=== PATIENT | male | born 1970 | race Caucasian/White ===

== ENCOUNTER 2020-02-11 15:02 | Inpatient (IN) | payer OTHER ==
[~2020-02-11] VITALS: Ht 162.6 cm; Wt 69.9 kg
[2020-02-11 15:06] VITALS: BP 126/87
[2020-02-11 15:26] LABS: ABSOLUTE NEUTROPHILS 4.8 thou/uL (1.4-8.2); BASOPHILS 2.1 % (0.0-2.0); EOSINOPHILS 0.4 % (0.0-3.0); HEMATOCRIT 33.1 % (42.0-52.0); MCH 37.5 pg (26.0-34.0); MCHC 33.2 g/dL (28.0-37.0); MCV 113.1 fL (80.0-100.0); MONOCYTES 6.3 % (1.0-8.0); POLYS 74.2 % (36.0-66.0); RBC 2.93 mil/uL (4.50-6.00); RDW 16.4 % (10.5-14.5); WBC 6.5 thou/uL (4.0-11.0)
[2020-02-11 15:35] LABS: ANION GAP 14 mmol/L (7-16); BUN 6 mg/dL (7-18); CALCIUM 8.1 mg/dL (8.5-10.1); CHLORIDE 103 mmol/L (98-107); CO2 22 mmol/L (21-32); CREATININE 0.7 mg/dL (0.7-1.3); GLUCOSE 99 mg/dL (74-106); POTASSIUM 4.1 mmol/L (3.5-5.1); SODIUM 139 mmol/L (136-145)
[2020-02-11 15:40] LABS: ALBUMIN 2.2 g/dL (3.4-5.0); SGOT 495 U/L (15-37); SGPT 90 U/L (16-63); TOTAL BILIRUBIN 7.2 mg/dL (0.2-1.0); TOTAL PROTEIN 6.3 g/dL (6.4-8.2)
[2020-02-11 15:41] LABS: SALICYLATE < 2.8 mg/dL (2.8-20.0)
[2020-02-11 15:43] LABS: INR 1.1; PROTIME 11.5 Seconds (9.3-11.4)
[2020-02-11 16:52] LABS: ANISOCYTOSIS 1+
[2020-02-11 16:54] LABS: MACROCYTES 2+; PLATELET COUNT 87 thou/uL (150-400)
--- NOTE | 2020-02-11 19:03 | NUR ---
SARAH BITA-SPOUSE [phone]
[2020-02-11 20:05] LABS: AMP/METHAMP Negative (Negative); BARBITURATES Negative (Negative); BENZODIAZEPINES Negative (Negative); COCAINE Negative (Negative); METHADONE Negative (Negative); OPIATES Negative (Negative); PCP Negative (Negative)
[2020-02-12] VITALS (47 sets, daily range): BP systolic 100–164; BP diastolic 62–105
[2020-02-12 06:02] LABS: ALBUMIN 1.9 g/dL (3.4-5.0); CALCIUM 7.4 mg/dL (8.5-10.1); CREATININE 0.7 mg/dL (0.7-1.3); MAGNESIUM 1.3 mg/dL (1.8-2.4); PHOSPHORUS 3.3 mg/dL (2.5-4.9); TOTAL BILIRUBIN 4.6 mg/dL (0.2-1.0); TOTAL PROTEIN 5.3 g/dL (6.4-8.2)
--- NOTE | 2020-02-12 06:16 | NUR ---
Pt tranported from ED with possessions on gurney to ICU room 238 @ 5253. Pt shaky and trembling from alcohol withdrawels. Admissions started with wound pic takened of left toe. CIWA of 16 on arrival. Leslie OLIVARES aware of pt condition and arrival to the unit. continue with plan of care
--- NOTE | 2020-02-12 07:15 | EKG ---
[address] [place] [address] ELECTROCARDIOGRAM REPORT Name: RICKIE TORRES Room #: 238-P ADM IN M.R.#: [id number] Admission: 02/11/20 Attend Phys: Treva Shaw MD Discharge: Date of : 70 Report #: [id number] [facility] ED Test Date: 2020-02-11 Test Time: 16:22:13 Pat Name: RICKIE TORRES Department: Room: 238 Gender: M Basket Assembler: aaron : 1970 Requested By: Magdy Argueta Order Number: [id number] MD: Nate Norman Measurements Intervals [place] Rate: 113 P: 40 FL: 138 QRS: 36 QRSD: 91 T: QT: 334 QTc: 458 Interpretive Statements Sinus tachycardia Borderline T abnormalities, diffuse leads Artifact in multiple lead(s) No previous ECG available for comparison Electronically Signed On 02-12-2020 7:15:42 LEAD ELECTRICAL CONTROLS ENGINEER by Nate Norman [email or web address] <ELECTRONICALLY SIGNED> By: Nate Norman MD, [facility] 02/12/20 0715 1622 1622 Nate Norman MD, FACC /EPI
[2020-02-12 11:29] LABS: % SATURATION 109 % (20-39); IRON 110 ug/dL (65-175); TIBC 101 ug/dL (250-450)
[2020-02-12 13:07] LABS: HEP B SURFACE Ab(ANTI-HBS Non Reactive (()); HEPATITIS B SURFACE AG Negative (Negative); HEPATITIS C VIRUS AB <0.1 (0.0-0.9)
[2020-02-12 13:07] LABS: HIV ANTIBODY Non Reactive (Non Reactive)
[2020-02-12 13:55] LABS: RDW 16.9 % (10.5-14.5)
[2020-02-12 13:57] LABS: HEMATOCRIT 27.5 % (42.0-52.0); MCH 38.1 pg (26.0-34.0); MCHC 32.6 g/dL (28.0-37.0); MCV 116.7 fL (80.0-100.0); RBC 2.36 mil/uL (4.50-6.00); WBC 3.7 thou/uL (4.0-11.0)
[2020-02-12 14:31] LABS: ABSOLUTE NEUTROPHILS 2.8 thou/uL (1.4-8.2)
[2020-02-12 14:32] LABS: PLATELET COUNT 47 thou/uL (150-400)
[2020-02-12 14:33] LABS: ANISOCYTOSIS 1+; MACROCYTES 1+
--- NOTE | 2020-02-12 16:21 | NUR ---
ASSESSMENT: CM WAS NOTIFIED BY BRONSON RN AROUND 1515 THAT PTS INSURANCE IS OUT O NETWORK WITH NO OUT OF NETWORK BENEFITS AND PT IS NEEDING TO TRANSFER TO AN IN-NETWORK HOSPITAL. [facility] AND [facility] ARE IN NETWORK. CM LEFT WITH RACQUEL AT [facility] TO RETURN CALL. BRONSON RN VERIFIED WITH REGISTRATION THAT POLICY IS OUT OT NETWORK. CM CONTACTED PTS SARAH ABOUT INSURANCE BEING OUT OF NETWORK AND [facility] OR [facility] IS IN NETWORK AND SHE REQUEST TO SEE IF [facility] CAN ACCEPT PT. CM CONTACTED [facility] TRANSFER TEAM AT [phone] AND LEFT , CM RECEIVED A CALL BACK STATING THAT THEY DO NOT HAVE ANY ICU BEDS OPEN. REQUEST THAT SHE DOES NOT WANT PATIENT TO GO TO [place]. SHE STATES SHE IS OK WITH CHECKING WITH [facility] IF [facility] OR [facility] CAN ACCEPT SHE IS AGREEABLE WITH PLAN. CM REACHED TO TO [facility] TRANSFER TEAM [phone] AND SPOKE WITH RACQUEL. REFERRAL WAS SENT TO [facility] TEAM FAX [phone] AND THEY WILL REVIEW AND CONTACT BEDSIDE RN IF THEY HAVE A BED AVAILABLE. [facility] PROVIDED CONTACT FOR BEDSIDE RN WELL ATTENDING. CHART COPY WAS ORDERED. [facility] FORM WILL HAVE TO BE COMPLETED BY BEDSIDE RN AND THEN FAXED TO [phone]. [facility] WILL HAVE TO BE CONTACTED AT [phone] TO ARRANGE TRANSPORTATION. CONTACT PTS IF HOSPITAL IS ABLE TO ACCEPT, SARAH [phone].
[2020-02-12 19:06] LABS: IgG 769 mg/dL (603-1613)
--- NOTE | 2020-02-12 23:01 | NUR ---
ASSUMED CARE FOR PT AT 1845. ASSESSMENT COMPLETED, CIWA SCORES 19. PRECEDEX DRIP INFUSING AT 0.04MCG/HR, AND 4MG ATIVAN GIVEN FOR AGITATION. HERNANDEZ IN PLACE, AND VSS. TRANSFERRED PT TO ROOM 351 AND REPORT GIVEN TO NURSE Verde
[2020-02-13] VITALS (17 sets, daily range): BP systolic 93–137; BP diastolic 35–96
--- NOTE | 2020-02-13 04:42 | NUR ---
CARE ASSUMED 2200, PT TRANSFERRED FROM POD 1. ORIENTED X 2. VITALS STABLE. PT ETOH WITHDRAWAL. DENIES NAUSEA, VOMITING OR CHEST DISCOMFORT. NO AGITATION , OR IMPULSSIVENESS NOTED, BUT CIWA SCORES 11, AND 16 . ATIVAN 4 MG X 1 GIVEN. PT OTHERWISE SLEPT THROUGH THE NIGHT WITHOUT AND CONCERNS. \ PT EXPRESSES DESIRE TO SEE HIS AND DISCHARGE HOME. NO OTHER CONCERNS AT THIS TIME. ASSESSMENTS DOCUMENTED. WILL CONTINUE TO MONITOR.
[2020-02-13 08:10] LABS: MAGNESIUM 1.6 mg/dL (1.8-2.4); POTASSIUM 4.8 mmol/L (3.5-5.1)
--- NOTE | 2020-02-13 12:50 | NUR ---
IV FLUIDS LEAKING, BATHED, BED CHANGED. PARTIAL ASSIST BY PT IN BATHING HIMSELF. ATIVAN 4 MG IV GIVEN FOR CIWA-18. MARK SANCHEZ, PRESENT. UPDATED ON PT STATUS. SHE INQUIRED REGARDING STATUS OF HOSPITAL TRANSFER RELATED TO INSURANCE. CONTACTED CASE MANAGEMENT, UPDATED ON HER CONCERN.
[2020-02-13 13:08] LABS: ANA INTERPRETATION Negative (Negative)
--- NOTE | 2020-02-13 13:30 | NUR ---
ON-GOING ASSESSMENT: CM REACHED OUT TO [facility] TRANSFER TEAM IN REGARDS TO GETTING PT TRANSFERRED DUE TO BEING OUT OF NETWORK WITH NO OUT OF NETWORK BENEFITS. RIVER SPOKE WITH [facility] TRANSFER TEAM AGAIN AT 1330 AND THEY STATED THAT [facility] IS FULL, [facility] IS FULL, [facility] IS AT [facility]ACITY BUT SHOWS STILL REVIEWING, AND SHE REPORTS THE ONLY [facility] FACILITY CURRENTLY WITH AN OPENING IS [facility] AND DO NOT FEEL THEY COULD MEET PTS NEEDS THERE. CM ALSO REACHED OUT TO [facility] TRANSFER TEAM [phone] WHO REPORTS THEY ARE AT CAPACITY TODAY BUT COULD TRY BACK TOMORROW. CM EXPLAINED PT IS STILL ON PRECEDEX BUT PLANS TO TAKE PT OFF AND IF THEY COULD ACCEPT THEM. TRANSFER TEAM AT [facility] STATING NOT TODAY THEY ARE AT [facility]ACITY AND STILL HAVE OTHERS WAITING BUT TO TRY TOMORROW. CM NOTIFIED PTS . CM WILL CONTINUE TO FOLLOW TO ASSIST NEEDED. [facility] TRANSFER TEAM HAS BEDSIDE RN UNIT NUMBER OT CALL IF BED BECOMES AVAILABILE. RIVER ALSO SPOKE WITH RACQUEL AT COUNTS INCLUDE 234 BEDS AT THE [facility] WHO REPORTS SHE IS GOING TO TAKE TO HER EXCELSIOR PICKER TO REVIEW CASE AND ATTEMPT TO GET IT APPROVED THROUGH 02/12-02/13 AND CM NOTIFIED HER CM IS TRYING TO FIND A BED BUT HAVING TROUBLE WITH AVAILABILITY AT THIS TIME.
[2020-02-13 14:08] LABS: CERULOPLASMIN 17.7 mg/dL (16.0-31.0)
--- NOTE | 2020-02-13 15:13 | NUR ---
amy joseph w/tracy from [facility] transfer team, currently still pending. tracy to contact amy w/update after she reaches out to hospitals.
--- NOTE | 2020-02-13 16:30 | NUR ---
PRESENT FOR SEVERAL HOURS PROVIDING SUPPORT. DAVID LYNCH. PT RESTING QUIETLY, ATIVAN NOT GIVEN AT THIS TIME PER CIWA SCALE.
[2020-02-14] VITALS (16 sets, daily range): BP systolic 107–167; BP diastolic 70–109
[2020-02-14 02:59] LABS: HEMATOCRIT 26.6 % (42.0-52.0); MCH 38.6 pg (26.0-34.0); MCHC 33.8 g/dL (28.0-37.0); MCV 114.2 fL (80.0-100.0); RBC 2.33 mil/uL (4.50-6.00); RDW 15.3 % (10.5-14.5); WBC 4.3 thou/uL (4.0-11.0)
[2020-02-14 03:09] LABS: ALBUMIN 1.7 g/dL (3.4-5.0); CALCIUM 8.1 mg/dL (8.5-10.1); CREATININE 0.7 mg/dL (0.7-1.3); POTASSIUM 3.8 mmol/L (3.5-5.1); TOTAL BILIRUBIN 5.2 mg/dL (0.2-1.0); TOTAL PROTEIN 5.2 g/dL (6.4-8.2)
--- NOTE | 2020-02-14 07:25 | NUR ---
ASSUMED PT CARE AT 1900. VSS. PT A&0 TO SELF, ON CIWA PRT, RANGE OF 9-15. MANAGED PER MAR. PT IS STABLE. MULTIPLE BM'S AND URINARY INCONTINENCE OVER NOC. OTHERWISE UNEVENTFUL NOC. PT STILL ON PRECEDEX. WILL COTNINUE TO MONITOR PER POC.
--- NOTE | 2020-02-14 09:44 | NUR ---
ASSUMED CARE OF PT AT 0700. PT IS HALLUCINATING VISUALLY. HIS CWA SCORE AT 0800 IT WAS 20 AND AT 0900 WAS 24. HE CONTINUES TO ASK FOR HIS . I SPOKE TO THE DISASTER RECOVERY COORDINATOR ADAN AT 0940 AND SHE ASKED TO CALL HER WHEN HE IS READY FOR TRANSFER. DR. WOODS WAS AT THE BEDSIDE AT 0940 AND SAID TO TURN THE PRECEDEX OFF AND TO US HALDOL IF NEEDED.
--- NOTE | 2020-02-14 10:44 | NUR ---
Pt's insurance is in network per UR nurse and pt will not need to transfer. All parties updated including pt's who is currently at bedside. Possible transfer out of the ICU today now that precedex has been dc'd. CIWA and ethol withdrawal protocal in place. GI following. 's cell number updated d/t typo [phone]. Will follow.
--- NOTE | 2020-02-14 20:49 | NUR ---
1950-SPOKE WITH ELISE SILVER, PT C/O NAUSEA, OBTAINED ORDER FOR ZOFRAN. PT ALSO NOTED TO HAVE RAISED RED SPLOTCHES ACROSS ABD, THIGHS, AND BACK; OBTAINED ORDER FOR BENADRYL CREAM.
[2020-02-15] VITALS (18 sets, daily range): BP systolic 110–178; BP diastolic 68–133
[2020-02-15 10:31] LABS: ALBUMIN 1.7 g/dL (3.4-5.0); DIRECT BILIRUBIN 3.7 mg/dL (<0.1-0.2); TOTAL BILIRUBIN 4.1 mg/dL (0.2-1.0); TOTAL PROTEIN 5.5 g/dL (6.4-8.2)
--- NOTE | 2020-02-15 16:42 | NUR ---
ASSUMED CARE PT APPROX 0900. PT SLEEPING, LIGHT SEDATION WITH PRECEDEX GTT AT 0.6, TITRATED DOWN CURRENTLY AT 0.3. PT REMAINS LETHARGIC. VSS. O2 SATS WNL ROOM AIR. PT EASILY AROUSABLE, SIPS WATER AND SMALL BITES FOOD GIVEN WITH NO S/SX ASPIRATION. SPOUSE AT BEDSIDE THROUGHOUT SHIFT. HERNANDEZ REMAINS IN PLACE FOR RETENTION AND STRICT I&O. CIWA SCORES 6-7 THIS SHIFT. WILL CONTINUE TO ATTEMPT TO WEAN TOLERATES. PT CURRENTLY SLEEPING IN NAP DISTRESS. WILL CONT TO MONITOR AND FOLLOW POC. WILL PASS ON REPORT TO NOC RN.
[2020-02-16] VITALS (23 sets, daily range): BP systolic 104–168; BP diastolic 67–116
--- NOTE | 2020-02-16 04:39 | NUR ---
ASSUMED PT CARE AT 1900. VSS. PT A&0 TO SELF & TIME. PT ON PRECEDEX AT 0.3. PT RESTED WELL ALL NOC, NO COMPLAINTS OF DISTRESS. PT IS STABLE. OCASSIONALLY CALLED OUT FOR HIS , AND HAD SOME MOMENTS OF CONFUSION BUT OVERALL STABLE, WILL CONTINUE TO MONITOR PER POC.
[2020-02-16 05:35] LABS: INR 1.2; PROTIME 12.4 Seconds (9.3-11.4)
[2020-02-16 06:17] LABS: ALBUMIN 1.6 g/dL (3.4-5.0); CALCIUM 7.9 mg/dL (8.5-10.1); CREATININE 0.7 mg/dL (0.7-1.3); POTASSIUM 3.2 mmol/L (3.5-5.1); TOTAL BILIRUBIN 3.8 mg/dL (0.2-1.0); TOTAL PROTEIN 5.4 g/dL (6.4-8.2)
--- NOTE | 2020-02-16 16:47 | NUR ---
Pt was put back on precedex drip. It is to be tapered again. Pt was seen by pt this day they are recommending post acute care stay. Pt may transfer out of the ICU once precedex has been dc'd. CIWA and ethol withdrawal protocal in place. GI following. 's cell number updated d/t typo [phone]. Will follow.
--- NOTE | 2020-02-16 19:24 | NUR ---
0900 PT CALM, ORIENTED TO SELF. SCHEDULED ATIVAN GIVEN. PT'S AT BEDSIDE AND UPDATED. PRECEDEX REMAINS OFF. 1200 DR WOODS HERE AND UPDATED. ORDERS FOR ADDITIONAL POTASSIUM VERFIED. PT RECIEVING PRN AND SCHDULED ATIVAN/HALDOL THIS AM. 1300 ASSISTED UP TO CHAIR BY PHYSICAL THERAPY AND REMAINED IN CHAIR FOR 1 HR. 1800 PT'S LEFT AND PT MORE ANXIOUS, INCREASED TREMORS, AND TACHY. ADDITIONAL ATIVAN AND HALDOL GIVEN. ORDER TO TRANSFER TO CCU. AWAITING AVAILABLE ROOM.
[2020-02-17] VITALS (20 sets, daily range): BP systolic 87–170; BP diastolic 57–108
[2020-02-17 04:41] LABS: ALBUMIN 1.7 g/dL (3.4-5.0); CALCIUM 8.4 mg/dL (8.5-10.1); CREATININE 0.6 mg/dL (0.7-1.3); POTASSIUM 3.5 mmol/L (3.5-5.1); TOTAL PROTEIN 5.6 g/dL (6.4-8.2)
[2020-02-17 04:46] LABS: HEMATOCRIT 29.2 % (42.0-52.0); HEMOGLOBIN 9.6 gm/dL (14.0-18.0); MCH 38.3 pg (26.0-34.0); MCHC 32.8 g/dL (28.0-37.0); MCV 116.8 fL (80.0-100.0); RBC 2.5 mil/uL (4.50-6.00); RDW 15.2 % (10.5-14.5); WBC 3.1 thou/uL (4.0-11.0)
[2020-02-17 04:52] LABS: TOTAL BILIRUBIN 3.1 mg/dL (0.2-1.0)
--- NOTE | 2020-02-17 07:56 | NUR ---
No progress toward discharge goals. At 1930 pt becoming increasingly tachycardic, hypertensive, with increasing tremors and confusion. Attempted to control withdrawl symptoms with IVP Haldol and Ativan without success. Pt incontinent of urine x2. Precedex restarted at 2029, initially at 1.2 mcg/kg/hour and titrated down to 0.3 mcg/kg/hour by 199. Araujo placed at 2014 for incontinence and accurate I&O. A. ELISE Rios notified of change in pt status at 2044 and pt changed from CC tele status back to ICU status. Pt has experienced no further problems overnight. CIWA down to 3. Urine output 3425 cc (plus incontinence). Pt remains on room air, sat > 93%.
--- NOTE | 2020-02-17 18:10 | NUR ---
WEANED DOWN PRECEDEX FROM 0.4 TO 0.2 AND CONTINUING WITH THE SCHEDULED ATIVAN AND HALDOL. CIWA TODAY 3-4. MORE ALERT THIS AFTERNOON AND MORE ORIENTED. CONTINUES TO BE DISORIENTED TO TIME. AT BEDSIDE MOST OF THE DAY. VITAL SIGNS STABLE.
[2020-02-18] VITALS (21 sets, daily range): BP systolic 71–140; BP diastolic 33–102
--- NOTE | 2020-02-18 04:27 | NUR ---
ASSESSMENT: PT REMAIN ALERT AND ORIENT TIMES TWO. DID KNOW PLACE AND PERSON. FORGETFUL AND CONFUSED TO DATE/TIME AND SITUATION. DID TALK TO PT ABOUT DEPRESSION AND SEEKING THERAPY SINCE IT'S BEEN 3 YEARS SINCE HIS DAUGHTER FROM AN OVERDOSE. PT STATE THAT IS WHY HE DRINKS, TO NUMB THE PAIN. AFTER TALKING WITH THIS RN, PT STATE THAT HE FEELS BETTER AND SOON WENT TO SLEEP. PRECEDEX REMAIN AT 0.2 PT BECAME IRRITABLE, TREMORS, AND SWEATY WHEN PRECEDEX WAS TITRATED TO 0.1 PT C/O ELLEN TOE PAIN, HYDROCODONE WAS ORDERED. PT STATE THAT THE PAIN MEDICATIONS PROVIDED AN ADEQUATE RELIEF OF PAIN. HS SNACK WAS GIVEN. PT WAS SLIGHTLY FEBRILE WITH MAX TEMP BEING 99.0 ORALLY. UO ADEQUATE AMT PER HERNANDEZ. SB PER MONITOR. SLOW PROGRESS TOWARDS DC GOALS, WILL CONTINUE TO MONITOR.
--- NOTE | 2020-02-18 19:29 | NUR ---
off precedex now, oob to chair with assist x 1. Became more tremulous and agitated at 1400. CIWA score 14. 4mg iv ativan given with good results. More alert and conversive this shift. Removed gomez at 1210. using urinal
[2020-02-19] VITALS (18 sets, daily range): BP systolic 117–214; BP diastolic 56–124
--- NOTE | 2020-02-19 04:27 | NUR ---
ASSUMED PT CARE AT 1900. VSS PT A&X4. CIWA CHARTED. AROUND 1AM PT GOT SLIGHTLY DISORIENTED AND HE GOT OUT OF BED AND PULLED OUT ALL HIS VITAL SIGN MONITORING WIRES AND IV ACCESS; STATING THAT HE WANTED TO GO TO HIS OWN ROOM SO HIS COULD COME VISIT HIM AND SHE COULD STAY LONGER. RN REORIENTED PT THAT HE WAS IN FACT IN HIS OWN PRIVATE ROOM AND EVEN IF HE WAS ON A DIFFERENT UNIT, HIS WOULD STILL HAVE TO LEAVE AT 5PM WHEN VISITING HOURS ARE OVER. PT COMMUNICATED UNDERSTANDING AND GOT BACK TO HIS BED. HE HAD 5 URINARY INCONTINENT EPISODES THROUGH THE NOC. PT IS HOWEVER STABLE AND WILL CONTINUE TO MONITOR PER POC.
--- NOTE | 2020-02-19 16:27 | NUR ---
Pt is off precedex drip. Therapy recommending post acute care stay. Pt may transfer out of the ICU tomorrow. CIWA and ethol withdrawal protocal in place. GI following. 's cell number updated d/t typo [phone]. Will follow.
[2020-02-20] VITALS (13 sets, daily range): BP systolic 111–157; BP diastolic 64–106
--- NOTE | 2020-02-20 04:43 | NUR ---
This RN to bedside at 1900. Patient alert and oriented x3- 4 throughout night. CIWA score 8-11. Pt has CC/tele orders but is still needed close monitoring and will likely require a sitter if transferred. Pt stil impulsive, removing things, trying to get up even with PRN medications. Will continue to monitor. Pt not progressing towards goals.
--- NOTE | 2020-02-20 04:56 | NUR ---
Pt increasingly confused. Pt took RNs hand and kissed it. RN offered reorientation and firmly educated patient on the innaproppriateness. Pt to believe RN is his . Will continue to monitor.
[2020-02-20 05:30] LABS: INR 1.2
[2020-02-20 05:31] LABS: ABSOLUTE NEUTROPHILS 1.4 thou/uL (1.4-8.2); BASOPHILS 2.9 % (0.0-2.0); EOSINOPHILS 5.6 % (0.0-3.0); HEMATOCRIT 30.3 % (42.0-52.0); LYMPHOCYTES 32.3 % (24.0-44.0); MCH 38.3 pg (26.0-34.0); MCHC 32.9 g/dL (28.0-37.0); MCV 116.4 fL (80.0-100.0); MONOCYTES 21.9 % (1.0-8.0); POLYS 37.3 % (36.0-66.0); RDW 14.5 % (10.5-14.5); WBC 3.6 thou/uL (4.0-11.0)
[2020-02-20 05:50] LABS: ALBUMIN 1.9 g/dL (3.4-5.0); CREATININE 0.7 mg/dL (0.7-1.3); POTASSIUM 3.6 mmol/L (3.5-5.1); TOTAL BILIRUBIN 2.7 mg/dL (0.2-1.0); TOTAL PROTEIN 5.8 g/dL (6.4-8.2)
[2020-02-20 05:55] LABS: PLATELET COUNT 320 thou/uL (150-400)
--- NOTE | 2020-02-20 08:27 | NUR ---
ASSUMMED CARE OF PATIENT AT 0700 FROM THE NIGHT NURSE LETICIA ISLAS. PATIENT ALERT BUT FORGETFUL AND IMPULSIVE, PULLED OFF EXTERNAL CATHETER AND INCONTIENT. LINENS CHANGED. C/O PAIN IN LEFT GREAT TOE, NOTED TO BE BRUISED AND SWOLLEN, YOUNG TAPPED TO 2ND TOE, ICE BAG APPLIED FOR COMFORT AND PAIN MED GIVEN. WILL CONTINUE TO MONITOR. PATIENT VOICED CONCERNS AND DESIRE TO STOP ETOH USAGE. AA ENCOURAGED.
--- NOTE | 2020-02-20 18:24 | NUR ---
TO UNIT FROM ICU BY PATI, ACCOMPANIED BY HIS . REPORT FROM JANEL JEREZ. TREMORS NOTED. SR/ST PER TELE. DENIES CP AND SOA. FALL PRECAUTIONS ACTIVATED.
--- NOTE | 2020-02-20 19:19 | NUR ---
PATIENT TRANSFERRED TO , CCU ROOM 202 AT 1600 WITH BELONGINGS VIA W/C, ACCOMPANIED BY HIS . REPORT GIVEN TO HEMANTH ISLAS. PATIENT IS PROGRESSING TOWARDS OUTCOME GOALS.
[2020-02-21 03:23] VITALS: BP 146/96
[2020-02-21 07:15] VITALS: BP 142/104
--- NOTE | 2020-02-21 07:51 | NUR ---
SLEPT PART OF SHIFT. PATIENT IMPULSIVE AT TIMES. EXTREMLY TREMULOUS. INCONTINENT AT TIMES OF URINE. WORKING ON GOALS AND PLAN OF CARE FOR NOC. CIWA EVERY 4HOURS 7-9. TURNS SELF. REMAINS WITH RED RAISED CIRCULAR PATCHES ON ABDOMAN, BACK AND THIGHS. MARINE FUEL DOCK ATTENDANT AWARE AND ASKED TO HAVE LOOK AT IN AM. CONTINUE TO ASSES.
[2020-02-21 16:15] VITALS: BP 172/108
--- NOTE | 2020-02-21 18:14 | NUR ---
PT ON SEIZURE PRECAUTIONS; CIWA PRECAUTIONS. PT HAS EXTREME TREMORS. PT COMPLAINED OF PAIN IN FOOT. PAIN IS DUE TO LEFT BIG TOE FRACTURE. PT HAS BEEN SINUS TACHY ON MONITOR, WITH INCREASE HR WHEN UP TO TOILET. PT IS ABLE TO VOID IF STDBY ASSIST WITH WALKER TO TOILET, BUT TREMORS ARE TOO MUCH FOR HIM TO USE BEDSIDE URINAL. PT APPEARS JAUNDICE. GI CONSULTED, HOSPITALIST CONSULTED. FALL PRECAUTIONS IN PLACE. POC CONTINUE TO MONITOR CIWA, TREMORS, AND POSSIBLE SEIZURES. NO CONCERNS AT THIS TIME.
[2020-02-21 19:55] VITALS: BP 153/113
[2020-02-22] VITALS (10 sets, daily range): BP systolic 113–144; BP diastolic 81–99
--- NOTE | 2020-02-22 07:44 | NUR ---
ASSUMED CARE OF PT AT 1900HRS. PT IS AOX4 WITH COME CONFUSION. FALL PRECAUTION IN PLACE. ASSESSMENT CHARTED. PT REPORTED SOME PAIN AND PRN MEDS WERE PROVIDED. ASSESSMENT CHARTED. PT WAS ABLE TO GET COMFORTABLE AND SLEEP PART OF THE SHIFT. REPORT GIVEN TO ONCOMING RN.
[2020-02-22 08:45] LABS: HEMATOCRIT 33.9 % (42.0-52.0); HEMOGLOBIN 11.2 gm/dL (14.0-18.0); MCH 37.1 pg (26.0-34.0); MCHC 32.9 g/dL (28.0-37.0); MCV 112.7 fL (80.0-100.0); RBC 3.01 mil/uL (4.50-6.00); RDW 14.1 % (10.5-14.5); WBC 4.3 thou/uL (4.0-11.0)
[2020-02-22 09:03] LABS: ALBUMIN 2.3 g/dL (3.4-5.0); CALCIUM 9.8 mg/dL (8.5-10.1); CREATININE 0.7 mg/dL (0.7-1.3); MAGNESIUM 1.6 mg/dL (1.8-2.4); POTASSIUM 3.8 mmol/L (3.5-5.1); TOTAL BILIRUBIN 2.8 mg/dL (0.2-1.0); TOTAL PROTEIN 6.7 g/dL (6.4-8.2)
[2020-02-22] MEDS ORDERED: PROTONIX 20 MG20 M1 PO (11:57)
[2020-02-22] MEDS ORDERED: B-1100 MG PO (11:57)
[2020-02-22] MEDS ORDERED: GABAPENTIN 100100 MG PO (11:57)
[2020-02-22] MEDS ORDERED: HYDROCODON-ACE1 EAC7 PO (11:57)
[2020-02-22] MEDS ORDERED: PRENATAL PO (11:57)
[2020-02-22] MEDS ORDERED: LORAZEPAM 1 MG T1 MG PO (11:57)
--- NOTE | 2020-02-22 14:01 | NUR ---
Pt dcing home today with hh orders vs snf. Voip Engineer spoke with the pt at bedside and his Harriet via phone. Pt does not want to pursue SNF and adament he wants to be at home. Spouse agreeable but reports she is concerned about the 6-9 steps to get into the house and she is not able to take any extra time off work. He will be alone for portions of the day/or night pending her schedule. They are open to HH referral and deny agency preference as long as they are in network with ins plan. Referral faxed to [place] per the dc certified financial planner. Therapy to work with the pt this afternoon on stairs. will be here around 4:30 today and can take the pt home. Pt interested in ethol resources and notes he did well with AA in the past. Resources noted on his dc instructions. Pt/spouse to see if family or friends might be able to check on him while his is at work. No dme indicated at this time. Pt dc'd from the rwalker and up to the bathroom with supervision. Will follow to finalize hh f/u.
--- NOTE | 2020-02-22 14:24 | NUR ---
FAXED REFERRAL TO [facility]. CONFIRMED WITH SHREYA/[facility]TA[facility] THAT THEY CAN ACCEPT PATIENT WHEN DISCHARGED AND THAT HE WAS A CURRENT PATIENT WITH THEM BEFORE HOSPITALIZATION. [facility] P [phone]; FAX [phone]
--- NOTE | 2020-02-22 16:48 | NUR ---
FAXED HOME HEALTH REFERRALS & DISCHARGE SUMMARY TO THE FOLLOWING AGENCIES: [facility]: P [phone]; FAX [phone] Denied insurance [facility]: P [phone]; FAX [phone] Denied because of Alcohol Intox DX stating notes do not support patient wants to improve. [facility]: P [phone]; FAX [phone] Pending Review [facility]: P [phone]; FAX [phone] Pending Review [facility]: P [phone]; FAX [phone] Pending Review
--- NOTE | 2020-02-22 17:35 | NUR ---
PT IS ALERT AND ORIENTED, PLEASANT. PT STATES PAIN IN LEFT FOOT FROM BROKEN TOE AT A 7/10. PT CAN BE WEAK WHEN STANDING AND WALKING. PT/OT CONSULTED. CASE MGMT CONSULTED. POC IS TO MANAGE PAIN BEFORE PHYSICAL ACTIVITY; DISCHARGE PT WITH , WITH HOME HEALTH/PHYSICAL THERAPY. DISCHARGE EDUCATION CONDUCTED ON ON HOME HEALTH, MEDICATIONS.
--- NOTE | 2020-02-23 09:32 | NUR ---
DC ORDERS/SUMMARY FAXED TO [facility] SPOKE WITH INTAKE THIS AM AND THEY RECEIVED ORDERS AND WILL ARRANGE VISITS WITH PT.
--- NOTE | 2020-02-23 17:09 | NUR ---
[facility] called late yesterday and confirmed hh acceptance. Dr. Urban to follow until pt establishes a pcp.
== END 2020-02-22 18:24 | disposition home or self-care (01) | DRG 432 ==
LOC: ER 15:02 → ICU 18:21 → EROBS 18:21 → ICU 02-12 04:55 → 2N 02-20 16:20
PROVIDERS: Hospitalist; Internal Medicine; Nurse Practitioner; ADMIT Internal Medicine; ATTEND Internal Medicine
DX: K70.11 Alcoholic hepatitis with ascites (principal); E43 Unspecified severe protein-calorie malnutrition; K92.1 Melena; F10.239 Alcohol dependence with withdrawal, unspecified; D61.818 Other pancytopenia; G93.40 Encephalopathy, unspecified; R79.89 Other specified abnormal findings of blood chemistry; Y90.9 Presence of alcohol in blood, level not specified; D63.1 Anemia in chronic kidney disease; F41.9 Anxiety disorder, unspecified; D69.6 Thrombocytopenia, unspecified; K72.90 Hepatic failure, unspecified without coma; G40.909 Epilepsy, unspecified, not intractable, without status epilepticus; K70.0 Alcoholic fatty liver; F32.9 Major depressive disorder, single episode, unspecified; E80.6 Other disorders of bilirubin metabolism; E87.6 Hypokalemia; F10.229 Alcohol dependence with intoxication, unspecified; E83.42 Hypomagnesemia; R63.4 Abnormal weight loss; R33.9 Retention of urine, unspecified; R25.1 Tremor, unspecified; Z20.822 Contact with and (suspected) exposure to COVID-19; Z68.26 Body mass index [BMI] 26.0-26.9, adult
CPT/HCPCS: 10078; 10081; 10203